=== PATIENT | female | born 1945 | race Caucasian/White ===

== ENCOUNTER → 2018-11-21 | Outpatient (CLI) | payer MEDICARE ==
[~2018-11-21] MED LIST: LISI5 PO; Metformin HCl1000 MG PO; PIOG15 PO
== END ==
LOC: LAB 14:20 → LAB SHORT 14:20
DX: R30.0 Dysuria (principal)
CPT/HCPCS: 87086

== ENCOUNTER → 2022-08-06 | Outpatient (CLI) | payer OTHER | END | disposition home or self-care (01) | LOC: LAB 13:11 → LAB SHORT 13:11 | DX: R30.0 Dysuria (principal) | CPT/HCPCS: 87086; 87147 ==